=== PATIENT | female | born 1975 ===

== ENCOUNTER 2018-03-01 21:52 | Emergency (ER) | payer SELFPAY ==
[2018-03-01 22:03] VITALS: BP 109/69; PULSE 60; RESP 18; TEMP 97.9; O2SAT 99
--- NOTE | 2018-03-01 22:57 | C.PDOC ---
Time Seen by Provider: 03/01/18 22:10 Chief Complaint (Nursing): Upper Extremity Problem/Injury Past Medical History Vital Signs: Last Vital Signs Temp 97.9 F 03/01/18 21:58 Pulse 60 03/01/18 21:58 Resp 18 03/01/18 21:58 BP 109/69 03/01/18 21:58 Pulse Ox 99 03/01/18 21:58 - Social History Hx Alcohol Use: No Hx Substance Use: No ED Course And Treatment O2 Sat by Pulse Oximetry: 99 Orthopedic Time Performed: 23:00 Time Out: Side verified, Site verified Procedure: Splint Other:: Long Posterior splint Location: Right Consent obtained: Verbal Performed by: Mid-level Provider (Milagro) Diagnosis: Fracture (Occult elbow fracture) Capillary refill: Normal Distal Sensation: Normal Distal Motor Function: Normal Capillary Refill: Normal Compartment: Normal, Soft, Nontender Distal Sensation: Normal Distal Motor Function: Normal Patient tolerated procedure: Well Disposition - Disposition Disposition: HOME/ ROUTINE Disposition Time: 23:12 Condition: GOOD
--- NOTE | 2018-03-01 22:59 | C.PDOC ---
History Of Present Illness 43 year old female presents to the ED for evaluation of pain and swelling to her right elbow for 2 days. Patient reports she fell and landed on her right elbow and wrist 2 days ago while on vacation. Patient states that after falling she felt a sharp pain traveling from her wrist to her shoulder. Patient denies headache, head injury, weakness, numbness or other injuries. Time Seen by Provider: 03/01/18 22:10 Chief Complaint (Nursing): Upper Extremity Problem/Injury History Per: Patient History/Exam Limitations: no limitations Onset/Duration Of Symptoms: Days Current Symptoms Are (Timing): Still Present Quality: "Pain" Pain Scale Rating Of: 6 Exacerbating Factor(s): Movement Recent travel outside of the [place]: No Additional History Per: Patient Past Medical History Reviewed: Historical Data, Nursing Documentation, Vital Signs Vital Signs: Last Vital Signs Temp 97.9 F 03/01/18 21:58 Pulse 60 03/01/18 21:58 Resp 18 03/01/18 21:58 BP 109/69 03/01/18 21:58 Pulse Ox 99 03/01/18 23:15 - Medical History PMH: No Chronic Diseases Surgical History: No Surg Hx Family History: States: Unknown Family Hx - Social History Hx Alcohol Use: No Hx Substance Use: No Review Of Systems Except As Marked, All Systems Reviewed And Found Negative. Constitutional: Negative for: Fever, Chills Cardiovascular: Negative for: Chest Pain Respiratory: Negative for: Shortness of Breath Gastrointestinal: Negative for: Nausea, Vomiting Musculoskeletal: Positive for: Shoulder Pain, Arm Pain Skin: Negative for: Rash Physical Exam - Physical Exam Appears: Non-toxic, No Acute Distress Skin: Normal Color, Warm, Dry, No Rash Head: Atraumatic, Normacephalic Eye(s): bilateral: Normal Inspection, PERRL, EOMI Oral Mucosa: Moist Neck: Normal ROM, Supple Respiratory: No Accessory Muscle Use, Other (Speaking in full sentences) Extremity: No Normal ROM (difficulty with right elbow extension past 100 degrees.), Tenderness (posterior right elbow), Capillary Refill (< 2 seconds), Swelling (posterior elbow and proximal forearm) Extremity: Bilateral: Normal Color And Temperature, Normal ROM (right hand, wrist and fingers) Pulses: Left Radial: Normal, Right Radial: Normal Neurological/Psych: Oriented x3, Normal Speech, Normal Motor, Normal Sensation Gait: Steady ED Course And Treatment O2 Sat by Pulse Oximetry: 99 (ON RA) Pulse Ox Interpretation: Normal - Other Rad right elbow and forearm X-Ray: Interpreted by Me Interpretation: (+) posterior fat pad sign. Possible occult elbow fracture Progress Note: Plan: - Tylenol 650 mg PO. - right elbow X-Ray. - right forearm X-Ray. possible elbow fx. Splint and sling was applied. Orthopedic Time Performed: 23:00 Time Out: Side verified, Site verified Procedure: Splint Other:: LONG POSTERIOR SPLINT Type: Long Consent obtained: Verbal Performed by: Mid-level Provider (Milagro) Diagnosis: Fracture Other:: OCCULT ELBOW Capillary refill: Normal Distal Sensation: Normal Distal Motor Function: Normal Capillary Refill: Normal Compartment: Normal, Soft, Nontender Distal Sensation: Normal Distal Motor Function: Normal Patient tolerated procedure: Well Disposition - Disposition Referrals: Tamara Summers MD [Staff Provider] - [facility] [Outside] [facility] [Outside] Disposition: HOME/ ROUTINE Disposition Time: 23:13 Condition: GOOD Additional Instructions: KEEP THE SPLINT ON AND ICE 3-4 TIMES PER DAY. DO NOT GET THE SPLINT WET. Follow up with the Orthopedist/ Ortho clinic within 1 week. Return if worsened. Instructions: Elbow Fracture (DC) Forms: [facility] ([place]), Work Excuse - Clinical Impression Clinical Impression: Elbow fracture - PA / RADIO ADJUSTER / Resident Statement MD/DO has reviewed & agrees with the documentation as recorded. - Scribe Statement The provider has reviewed the documentation as recorded by the Scribe Reji Aguilar All medical record entries made by the Scribe were at my direction and personally dictated by me. I have reviewed the chart and agree that the record accurately reflects my personal performance of the history, physical exam, medical decision making, and the department course for this patient. I have also personally directed, reviewed, and agree with the discharge instructions and disposition.
--- NOTE | 2018-03-02 08:16 | RAD ---
PROCEDURE: Radiographs of the Right Forearm HISTORY: injury, pain to forearm COMPARISON: None available. TECHNIQUE: Frontal and lateral views obtained. FINDINGS: BONES: A nondisplaced radial head fracture with extension to the radial capitellar joint space is suggested. No depression of it is seen. JOINT SPACES: No dislocation. OTHER FINDINGS: Elbow joint effusion present IMPRESSION: A nondisplaced radial head fracture with extension to the radial capitellar joint space . No depression. No dislocation Elbow joint effusion
--- NOTE | 2018-03-02 10:10 | RAD ---
PROCEDURE: Radiographs of the right elbow. HISTORY: fall injury, pain posteriorly COMPARISON: No prior. FINDINGS: BONES: No acute fracture or destructive bony lesion identified. However, anterior and posterior joint effusions are identified and although no definite cortical disruption throughout the right elbow is appreciated, a nondisplaced fracture may be present given these effusions and follow-up CT or MRI should be considered nevertheless. JOINTS: No subluxation or dislocation. SOFT TISSUES: Normal. JOINT EFFUSION: None. OTHER FINDINGS: None. IMPRESSION: No cortical disruption to define the displaced fracture however significant joint effusions are identified, particularly posteriorly, and follow-up CT or MRI should be considered to exclude potential occult fracture not identified by the radiographs.
== END 2018-03-01 23:30 | disposition home or self-care (01) ==
LOC: C.ER 21:52
DX: S52.124A Nondisplaced fracture of head of right radius, initial encounter for closed fracture (principal); W18.30XA Fall on same level, unspecified, initial encounter